=== PATIENT | male | born 1980 | race American Indian/Alaskan Native ===

== ENCOUNTER 2016-08-18 08:05 | Emergency (ER) | payer BC, OTHER ==
[2016-08-18 11:19] LABS: Basophils % (Auto) 0.4 % (0.0-1.8); Eosinophils % (Auto) 0.2 % (0.0-4.3); Hematocrit 40.8 % (35.5-45.6); Hemoglobin 13.4 gm/dl (11.8-15.2); Mean Corpuscular HGB Conc 33 % (32-34); Mean Corpuscular Hemoglobin 28 pg (28-32); Mean Corpuscular Volume 86 fl (84-94); Platelet Count 206 K/mm3 (140-440); Red Blood Count 4.76 M/mm3 (3.65-5.03); Red Cell Distribution Width 14.1 % (13.2-15.2); White Blood Count 8.2 K/mm3 (4.5-11.0)
[2016-08-18 11:37] LABS: Anion Gap 15 mmol/L; BUN/Creatinine Ratio 12.22; Blood Urea Nitrogen 11 mg/dL (9-20); Calcium 9.2 mg/dL (8.4-10.2); Carbon Dioxide 26 mmol/L (22-30); Chloride 103.1 mmol/L (98-107); Glucose 99 mg/dL (75-100); Potassium 4.1 mmol/L (3.6-5.0); Sodium 140 mmol/L (137-145)
--- NOTE | 2016-08-18 12:49 | Emergency Department Report ---
ED Lower Extremity HPI - General Chief Complaint: Extremity Injury, Lower Stated Complaint: LEFT LEG NUMBNESS/BODY HOT Time Seen by Provider: 08/18/16 10:43 Source: patient Mode of arrival: Ambulatory Limitations: No Limitations - History of Present Illness Initial Comments: 36 M PMH Marijuana Smoker, Anxiety no other PMH p/w c/o sensation of feeling flushed after , as per pt, "smoking alot" of marijuana. Pt is AAox3, NAD, fully lucid and conversant, ambulatory without assistance. Cooperative and calm. States that he binged on marijuana a few days ago and he experienced tingling sensation in his LLE. Denies any CP, SOB, palpitations, fever, chills, no n/v/d , denies any abdominal pain. Denies any direct trauma to LE, no reports of leg swelling or redness. No hx of DVT or PE, no recent travel, no hx of recent surgeries or cancer. States tingling feeling occurred while he was smoking an he states he smoked a high amount, more than usual. Pt denies any current tactile sensations. Denies any visual or auditory hallucinations, denies any other drug use. Pt denies any paraylsis, symptoms confined to his LLE, now resolved. States it lasted intemittently for a few hours 3 days ago, has not recurred. Pt concerned his marijuna may have been laced with another substance. Complaint: other (lle skin sensation) -: days(s) (3) Injury: Leg: Left (left lower leg from knee to foot) Place: home Severity: mild Severity scale (0 -10): 0 Worsens With: nothing Associated Symptoms: tingling - Related Data Home Medications Medication Instructions Recorded Confirmed Last Taken Acetaminophen [Tylenol] 650 mg PO Q6HR PRN 04/15/16 04/15/16 Unknown Cyclobenzaprine HCl [Flexeril 5 MG 5 mg PO TID PRN 04/15/16 04/15/16 Unknown TAB] Allergies Allergy/AdvReac Type Severity Reaction Status Date / Time No Known Allergies Allergy Unverified 06/29/14 09:52 ED Review of Systems ROS: Stated complaint: LEFT LEG NUMBNESS/BODY HOT Other details as noted in HPI Constitutional: denies: chills, fever Eyes: denies: eye pain, eye discharge, vision change ENT: denies: ear pain, throat pain Respiratory: denies: cough, shortness of breath, wheezing Cardiovascular: denies: chest pain, palpitations Endocrine: no symptoms reported Gastrointestinal: denies: abdominal pain, nausea, diarrhea Genitourinary: denies: urgency, dysuria Musculoskeletal: denies: back pain, joint swelling, arthralgia Skin: denies: rash, lesions Neurological: paresthesias. denies: headache, weakness Psychiatric: denies: anxiety, depression Hematological/Lymphatic: denies: easy bleeding, easy bruising Other: marijuana use ED Past Medical Hx - Past Medical History Previous Medical History?: Yes Hx Congestive Heart Failure: No Hx Diabetes: No Hx Psychiatric Treatment: Yes (anxiety) Hx Asthma: No Hx COPD: No - Surgical History Past Surgical History?: No - Social History Smoking Status: Current Every Day Smoker Substance Use Type: Alcohol, Marijuana - Medications Home Medications: Home Medications Medication Instructions Recorded Confirmed Last Taken Type Acetaminophen [Tylenol] 650 mg PO Q6HR PRN 04/15/16 04/15/16 Unknown History Cyclobenzaprine HCl [Flexeril 5 MG 5 mg PO TID PRN 04/15/16 04/15/16 Unknown History TAB] ED Physical Exam - General Limitations: No Limitations General appearance: alert, in no apparent distress - Head Head exam: Present: atraumatic, normocephalic - Eye Eye exam: Present: normal appearance, PERRL, EOMI - ENT ENT exam: Present: mucous membranes moist - Neck Neck exam: Present: normal inspection, full ROM - Respiratory Respiratory exam: Present: normal lung sounds bilaterally. Absent: respiratory distress - Cardiovascular Cardiovascular Exam: Present: regular rate, normal rhythm. Absent: systolic murmur, diastolic murmur, rubs, gallop - GI/Abdominal GI/Abdominal exam: Present: soft, normal bowel sounds - Rectal Rectal exam: Present: deferred - Extremities Exam Extremities exam: Present: normal inspection - Expanded Lower Extremity Exam Left Hip exam: Present: normal inspection, full ROM Upper Leg exam: Present: normal inspection, full ROM Knee exam: Present: normal inspection, full ROM, full knee extension Lower Leg exam: Present: normal inspection, full ROM Ankle exam: Present: normal inspection, full ROM Foot/Toe exam: Present: normal inspection, full ROM Neuro vascular tendon exam: Present: no vascular compromise Gait: Positive: observed and normal - Back Exam Back exam: Present: normal inspection - Neurological Exam Neurological exam: Present: alert, oriented X3, CN II-XII intact, normal gait, reflexes normal - Expanded Neurological Exam Expanded Patient oriented to: Present: person, place, time Cranial nerves: EOM's Intact: Normal, Gag Reflex: Normal, Tongue Deviation: Normal, Nystagmus: Normal, Facial Sensation: Normal, Facial Palsy with Forehead Movement: Normal, Facial Palsy without Forehead Movement: Normal Cerebellar function: Finger to Nose: Normal, Heel to Monroy: Normal, Romberg: Normal Upper motor neuron: Daniel Neglect: Normal, Pronator Drift: Normal Sensory exam: Upper Extremity Light Touch: Normal, Upper Extremity Pin Prick: Normal, Upper Extremity Temperature: Normal, UE 2 Point Discrimination: Normal, Lower Extremity Light Touch: Normal, Lower Extremity Pin Prick: Normal, Lower Extremity Temperature: Normal, LE 2 Point Discrimination: Normal Motor strength exam: RUE: 5, LUE: 5, RLE: 5, LLE: 5 DTR: bicep (R): 3+, bicep (L): 3+, tricep (R): 3+, tricep (L): 3+, knee (R): 3+ , knee (L): 3+, ankle (R): 3+, ankle (L): 3+ Best Eye Response (Edelstein): (4) open spontaneously Best Motor Response (Iwona): (6) obeys commands Best Verbal Response (Iwona): (5) oriented Iwona Total: 15 - Psychiatric Psychiatric exam: Present: normal affect, normal mood - Skin Skin exam: Present: warm, dry, intact, normal color. Absent: rash ED Course Vital Signs 08/18/16 08/18/16 08:16 13:01 Temperature 98.1 F 98 F Pulse Rate 73 68 Respiratory 20 18 Rate Blood Pressure 130/91 Blood Pressure 128/78 [Left] O2 Sat by Pulse 100 100 Oximetry ED Lower Extremity MDM - Lab Data Result diagrams: 08/18/16 11:07 08/18/16 11:07 - Medical Decision Making A/P: Marijuana abuse, LE paraesthesia, tactile hallucination 1-Possible tactile hallucination in LLE induced by acute THC intoxication may account for what pt experienced 3 days ago. Pts extremity is neurovascularly intact, full ROM all joints, sensation intact, pt fully ambulatory, no clinical or historical signs of cauda equina. No nuero deficits on exam, CN 1-12 grossly intact, DTRs intact, strg]engtgh 5/5 all extremities, no clincal signs of dvt of cellulitis or gout 2-basic labs, electrolytes WNL 3- will refer pt to PMD and outpt neurology 4- pt is currently completely asymptomatic, not clinically intoxicated or clinically psychotic 5- Wells Score for DVT 0 Critical care attestation.: If time is entered above; I have spent that time in minutes in the direct care of this critically ill patient, excluding procedure time. ED Disposition Clinical Impression: Marijuana abuse, Tactile hallucination Disposition: DISCHARGED TO HOME OR SELFCARE Is pt being admited?: No Does the pt Need Aspirin: No Condition: Stable Instructions: How to Stop Smoking (ED) Referrals: ADRIANA WEISS MD [Staff Physician] - 3-5 Days CARLIE MORRIS MD [Staff Physician] - 3-5 Days [facility] [Outside] - 3-5 Days Forms: Work/School Release Form(ED) Time of Disposition: 12:50
[2016-08-18 13:02] VITALS: BP 128/78
[2016-08-18 13:07] LABS: Urine Drugs of Abuse Note Disclamer
== END 2016-08-18 13:01 | disposition home or self-care (01) ==
LOC: ED 08:05
DX: F12.10 Cannabis abuse, uncomplicated (principal); R44.2 Other hallucinations; F41.9 Anxiety disorder, unspecified; F17.200 Nicotine dependence, unspecified, uncomplicated
CPT/HCPCS: 36415; 80048; 80307; 82550; 83735; 85025; 99283

== ENCOUNTER 2016-12-21 10:57 | Emergency (ER) | payer BC ==
[2016-12-21 11:09] VITALS: BP 147/94
[2016-12-21 11:45] LABS: Basophils % (Auto) 0.7 % (0.0-1.8); Eosinophils % (Auto) 1.4 % (0.0-4.3); Hemoglobin 14.5 gm/dl (11.8-15.2); Mean Corpuscular HGB Conc 33 % (32-34); Mean Corpuscular Hemoglobin 29 pg (28-32); Mean Corpuscular Volume 88 fl (84-94); Platelet Count 243 K/mm3 (140-440); Red Cell Distribution Width 14.4 % (13.2-15.2); White Blood Count 7.7 K/mm3 (4.5-11.0)
[2016-12-21 11:55] LABS: Anion Gap 18 mmol/L; BUN/Creatinine Ratio 9.09; Blood Urea Nitrogen 10 mg/dL (9-20); Calcium 9.3 mg/dL (8.4-10.2); Carbon Dioxide 26 mmol/L (22-30); Chloride 101.6 mmol/L (98-107); Glucose 82 mg/dL (75-100); Potassium 4.1 mmol/L (3.6-5.0); Sodium 141 mmol/L (137-145)
== END 2016-12-21 18:15 | disposition left against medical advice (07) ==
LOC: ED 10:57
DX: F41.9 Anxiety disorder, unspecified (principal); R07.9 Chest pain, unspecified; F17.200 Nicotine dependence, unspecified, uncomplicated; Z53.21 Procedure and treatment not carried out due to patient leaving prior to being seen by health care provider
CPT/HCPCS: 36415; 80048; 84484; 85025; 93005; 93010; G0480; 80320

== ENCOUNTER 2017-06-22 07:48 | Emergency (ER) | payer BC ==
[2017-06-22 08:10] LABS: Bilirubin,Urine NEG (Negative); Blood,Urine NEG (Negative); Color,Urine Yellow (Yellow); Mucus,Urine FEW /HPF; Nitrite,Urine NEG (Negative); Protein,Urine <15 mg/dL mg/dL (Negative); Urobilinogen,Urine < 2.0 mg/dL (<2.0)
--- NOTE | 2017-06-22 10:57 | Emergency Department Report ---
HPI - General Chief Complaint: Urogenital-Male Time Seen by Provider: 06/22/17 09:33 - HPI HPI: Patient is a 37-year-old male with no prior medical history who presents to ED stating that he was seen at [facility] on 06/17/2017 and was treated for STDs. Patient reports to the today stating that his still having some burning intermittently not associated with urination. Patient states he was given a shot, azithromycin and Flagyl while at the ED. He denies any fever assess chills/nausea vomiting/penile discharge, penile swelling or pain, testicular swelling or pain, dysuria. Patient simply states that he just gets some burning and sometimes and isn't sure what medication worked ED Past Medical Hx - Past Medical History Previous Medical History?: Yes Hx Congestive Heart Failure: No Hx Diabetes: No Hx Psychiatric Treatment: Yes (anxiety) Hx Asthma: No Hx COPD: No Additional medical history: STD exposure - Surgical History Past Surgical History?: No - Social History Smoking Status: Current Every Day Smoker Substance Use Type: Alcohol, Marijuana, Prescribed - Medications Home Medications: Home Medications Medication Instructions Recorded Confirmed Last Taken Type Acetaminophen [Tylenol] 650 mg PO Q6HR PRN 04/15/16 04/15/16 Unknown History Cyclobenzaprine HCl [Flexeril 5 MG 5 mg PO TID PRN 04/15/16 04/15/16 Unknown History TAB] Amoxicillin/K Clav Tab [Augmentin 1 tab PO Q12HR #14 tab 06/22/17 Unknown Rx 875 mg] ED Review of Systems ROS: Stated complaint: BURNING URINATION Other details as noted in HPI Constitutional: denies: chills, fever Eyes: denies: eye pain, eye discharge, vision change ENT: denies: ear pain, throat pain Respiratory: denies: cough, shortness of breath, wheezing Cardiovascular: denies: chest pain, palpitations Endocrine: no symptoms reported Gastrointestinal: denies: abdominal pain, nausea, diarrhea Genitourinary: denies: urgency, dysuria Musculoskeletal: denies: back pain, joint swelling, arthralgia Skin: denies: rash, lesions Neurological: denies: headache, weakness, paresthesias Psychiatric: denies: anxiety, depression Hematological/Lymphatic: denies: easy bleeding, easy bruising Physical Exam - Physical Exam Vital Signs: Vital Signs 06/22/17 07:52 Temperature 98.3 F Pulse Rate 79 Respiratory 18 Rate Blood Pressure 133/98 O2 Sat by Pulse 98 Oximetry Physical Exam: GENERAL: Alert and oriented x3, no apparent distress, Normal Gait, atraumatic. HEAD: Head is normocephalic and a-traumatic. LUNGS: Symetrical with respiration, No wheezing, no rales or crackles, CTAB. HEART: S1, S2 present, regular rate and rhythm without murmur, no rubs, no gallops. Non tender to palpation BACK: Full range of motion, no spinal tenderness, nontender to palpation. UROGENITAL: No scrotal mass, Scrotum non tender to palpation bilaterally, no hernia, no scars or penile discharge. SKIN: Warm and dry, No lesions, No ulceration or induration present. ED Course Vital Signs 06/22/17 07:52 Temperature 98.3 F Pulse Rate 79 Respiratory 18 Rate Blood Pressure 133/98 O2 Sat by Pulse 98 Oximetry ED Medical Decision Making - Medical Decision Making 37-year-old male presents with Std the exposure and was treated ED course: I discussed the patient at all to treat symptoms in the lag for about a week. I discussed with the patient medication can take up to week to resolve all symptoms. I discussed with the patient to follow-up with the health department for further STD testing I discussed prior to treatment and no intercourse for the next 10 days and nonprogressive verification of partner has been treated Patient denies having any other symptoms and states he may just be overthinking and worried Urinalysis today was clean, no signs of bacteria or white count. I discussed this with the patient. I discussed with patient that I will give him some antibiotics to treat a UTI since is having mild dysuria. I discussed the follow up with primary care doctor. Vital signs are stable patient in no acute distress he understands all instructions given. I did discuss with the patient is symptoms worsen to return to the ED Critical care attestation.: If time is entered above; I have spent that time in minutes in the direct care of this critically ill patient, excluding procedure time. ED Disposition Clinical Impression: Dysuria Disposition: DC-01 TO HOME OR SELFCARE Is pt being admited?: No Does the pt Need Aspirin: No Condition: Stable Instructions: Dysuria (ED), Safe Sex (ED), Sexually Transmitted Diseases (ED) Additional Instructions: Make sure to follow up with the primary care physician as discussed. Take all your medications as you've been prescribed. If you have any worsening symptoms or develop new symptoms please return to ED immediately. Prescriptions: Amoxicillin/K Clav Tab [Augmentin 875 mg] 1 tab PO Q12HR #14 tab Referrals: PRIMARY CARE, [Primary Care Provider] - 3-5 Days [facility] [Outside] - 3-5 Days [facility] [Outside] - 3-[address] [facility] [Outside] - 3-5 Days [facility] [Outside] - 3-5 Days [facility] [Outside] - 3-5 Days Forms: Work/School Release Form(ED) Time of Disposition: 10:59
[2017-06-22 11:44] VITALS: BP 132/80
== END 2017-06-22 11:18 | disposition home or self-care (01) ==
LOC: ED 07:48
DX: R30.0 Dysuria (principal); F17.200 Nicotine dependence, unspecified, uncomplicated; F12.10 Cannabis abuse, uncomplicated
CPT/HCPCS: 81001

== ENCOUNTER 2019-04-17 08:01 | Emergency (ER) | payer SELFPAY ==
[2019-04-17 08:10] VITALS: BP 143/95
--- NOTE | 2019-04-17 09:14 | Emergency Department Report ---
- General Chief complaint: Skin/Abscess/Foreign Body Stated complaint: FACE SWOLLEN/HAIR BUMP Time Seen by Provider: 04/17/19 09:08 Source: patient Mode of arrival: Ambulatory Limitations: No Limitations - History of Present Illness MD complaint: abscess/boil -: week(s) (4) Location: face - Related Data Home Medications Medication Instructions Recorded Confirmed Last Taken Acetaminophen [Tylenol] 650 mg PO Q6HR PRN 04/15/16 04/15/16 Unknown Cyclobenzaprine HCl [Flexeril 5 MG 5 mg PO TID PRN 04/15/16 04/15/16 Unknown TAB] Previous Rx's Medication Instructions Recorded Last Taken Type Amoxicillin/K Clav Tab [Augmentin 1 tab PO Q12HR #14 tab 06/22/17 Unknown Rx 875 mg] Allergies Allergy/AdvReac Type Severity Reaction Status Date / Time No Known Allergies Allergy Unverified 06/29/14 09:52 Abscess Boil HPI - HPI Chief Complaint: Skin/Abscess/Foreign Body Stated Complaint: FACE SWOLLEN/HAIR BUMP Time Seen by Provider: 04/17/19 09:08 Home Medications: Home Medications Medication Instructions Recorded Confirmed Last Taken Acetaminophen [Tylenol] 650 mg PO Q6HR PRN 04/15/16 04/15/16 Unknown Cyclobenzaprine HCl [Flexeril 5 MG 5 mg PO TID PRN 04/15/16 04/15/16 Unknown TAB] Previous Rx's Medication Instructions Recorded Last Taken Type Amoxicillin/K Clav Tab [Augmentin 1 tab PO Q12HR #14 tab 06/22/17 Unknown Rx 875 mg] Allergies/Adverse Reactions: Allergies Allergy/AdvReac Type Severity Reaction Status Date / Time No Known Allergies Allergy Unverified 06/29/14 09:52 ED Review of Systems ROS: Stated complaint: FACE SWOLLEN/HAIR BUMP Other details as noted in HPI Comment: All other systems reviewed and negative Constitutional: denies: chills, fever Respiratory: denies: cough, shortness of breath Gastrointestinal: denies: abdominal pain, nausea, vomiting Skin: lesions ED Past Medical Hx - Past Medical History Previous Medical History?: Yes Hx Congestive Heart Failure: No Hx Diabetes: No Hx Psychiatric Treatment: Yes (anxiety) Hx Asthma: No Hx COPD: No Additional medical history: STD exposure - Surgical History Past Surgical History?: No - Social History Smoking Status: Never Smoker Substance Use Type: Marijuana - Medications Home Medications: Home Medications Medication Instructions Recorded Confirmed Last Taken Type Acetaminophen [Tylenol] 650 mg PO Q6HR PRN 04/15/16 04/15/16 Unknown History Cyclobenzaprine HCl [Flexeril 5 MG 5 mg PO TID PRN 04/15/16 04/15/16 Unknown History TAB] Amoxicillin/K Clav Tab [Augmentin 1 tab PO Q12HR #14 tab 06/22/17 Unknown Rx 875 mg] ED Physical Exam - General Limitations: No Limitations General appearance: alert, in no apparent distress - Head Head exam: Present: atraumatic, normocephalic, normal inspection - Eye Eye exam: Present: normal appearance - ENT ENT exam: Present: normal exam - Neck Neck exam: Present: normal inspection. Absent: tenderness, meningismus - Neurological Exam Neurological exam: Present: alert, oriented X3, CN II-XII intact, normal gait - Skin Skin exam: Present: other (2x2 centimeter lesion to the right cheek, nonfluctuant.) ED Course Vital Signs 04/17/19 08:06 Temperature 98.2 F Pulse Rate 72 Respiratory 18 Rate Blood Pressure 143/95 O2 Sat by Pulse 97 Oximetry Critical care attestation.: If time is entered above; I have spent that time in minutes in the direct care of this critically ill patient, excluding procedure time. ED Disposition Clinical Impression: Abscess Disposition: DC-01 TO HOME OR SELFCARE Is pt being admited?: No Condition: Stable Instructions: Abscess (ED) Referrals: [facility] [Provider Group] - 3-5 Days
== END 2019-04-17 09:30 | disposition home or self-care (01) ==
LOC: ED 08:01
DX: L02.01 Cutaneous abscess of face (principal); F41.9 Anxiety disorder, unspecified; F12.10 Cannabis abuse, uncomplicated; Z79.899 Other long term (current) drug therapy